=== PATIENT | male | born 1985 | race Hispanic/Latino ===

== ENCOUNTER 2016-11-06 09:58 | Emergency (ER) | payer OTHER ==
[~2016-11-06] VITALS: Ht 185.4 cm; Wt 108.9 kg
[~2016-11-06 09:58] MED LIST: NORCOTAB PO; ONDA4TAB6 PO; PERC5TAB6 PO; PERC7.5T3 PO; PERCOCET PO; PROT1TAB2 PO; TUMS500C PO; TYLE500T78 PO; ZANA4TAB PO
[2016-11-06] MEDS ORDERED: TYLE325C PO (10:06)
[2016-11-06] MEDS ORDERED: diclofenac 1% (10:06)
[2016-11-06] MEDS ORDERED: LIDOCAINE (10:06)
[2016-11-06] MEDS ORDERED: ULTRACET TAB PO PRN (11:15)
[2016-11-06] MEDS: traMADol 50 MG TAB PO ONE (11:23)
[2016-11-06] MEDS ORDERED: TRAM50TA2 PO (11:57)
--- NOTE | 2016-11-06 12:04 | REP ---
REASON: Shoulder pain. PRIORS: None. COMPARISON: No priors. FINDINGS: Three views of the shoulder were performed. The acromioclavicular and glenohumeral relationships are within normal limits. There is no acute fracture or destructive osseous lesions. Signed by Lev Culp DO 11/06/2016 02:09 P
[2016-11-06 12:13] VITALS: BP 150/92
== END 2016-11-06 12:25 | disposition home or self-care (01) ==
LOC: M ED 12:10
DX: M25.511 Pain in right shoulder (principal)

== ENCOUNTER 2016-12-01 21:20 | Emergency (ER) | payer OTHER ==
[~2016-12-01] VITALS: Ht 185.4 cm; Wt 113.4 kg
[~2016-12-01 21:20] MED LIST changes: +LIDOCAINE; +TRAM50TA2 PO; +TYLE325C PO; +diclofenac 1%
[2016-12-01 21:21] VITALS: BP 175/101
[2016-12-01] MEDS ORDERED: IMIT50TA PO (21:36)
== END 2016-12-02 00:45 | disposition left against medical advice (07) ==
LOC: M ED 22:32
DX: R07.81 Pleurodynia (principal); Z53.21 Procedure and treatment not carried out due to patient leaving prior to being seen by health care provider

== ENCOUNTER 2017-02-27 20:39 | Emergency (ER) | payer OTHER ==
[~2017-02-27] VITALS: Ht 185.4 cm; Wt 113.6 kg
[~2017-02-27 20:39] MED LIST changes: +IMIT50TA PO; +PERC5TAB12 PO; -PERC5TAB6 PO; +PERC7.5T11 PO; -PERC7.5T3 PO
[2017-02-27] MEDS ORDERED: TYLE325T5 PO (20:56)
[2017-02-27] MEDS ORDERED: ONDANSETRON 4MG/2ML VIAL (J2405) IV ONE (22:00)
[2017-02-27] MEDS ORDERED: NS 1,000 ML IV ONE (22:00)
[2017-02-27 22:12] LABS: BASO # 0.4 K/mm3 (0.0-0.2); BASO % 3.5 % (0.0-1.0); EOS # 0.2 K/mm3 (0.0-0.50); EOS % 1.8 % (0.0-3.0); LARGE UNSTAINED CELL # 0.2 K/mm3 (0.0-0.4); LARGE UNSTAINED CELL % 1.7 % (0.0-4.0); LYMPH # 3.1 K/mm3 (1.5-4.5); LYMPH % 30.5 % (24.0-44.0); MEAN CORPUSCULAR HEMOGLOBIN 31.9 pg (27.0-33.0); MEAN CORPUSCULAR HGB CONC 34.9 g/dl (32.0-36.5); MEAN CORPUSCULAR VOLUME 91.6 fl (80.0-96.0); MONO # 0.6 K/mm3 (0.0-0.8); MONO % 5.9 % (0.0-5.0); NEUTROPHILS # 5.8 K/mm3 (1.8-7.7); NEUTROPHILS % 56.7 % (36.0-66.0); PLATELET COUNT, AUTOMATED 349 k/mm3 (150-450); RED CELL DISTRIBUTION WIDTH 11.3 % (11.5-14.5); WHITE BLOOD COUNT 10.2 K/mm3 (4.0-10.0)
[2017-02-27 22:46] LABS: ALBUMIN/GLOBULIN RATIO 0.91 (1.00-1.93); ALKALINE PHOSPHATASE 82 U/L (45-117); ALT/SGPT 57 U/L (12-78); ANION GAP 9 MEQ/L (8-16); AST/SGOT 29 U/L (15-37); BILIRUBIN,DIRECT 0.1 MG/DL (0.0-0.2); BILIRUBIN,TOTAL 0.6 MG/DL (0.2-1.0); BLOOD UREA NITROGEN 12 MG/DL (7-18); CALCIUM LEVEL 8.7 MG/DL (8.5-10.1); CARBON DIOXIDE LEVEL 27 MEQ/L (21-32); CHLORIDE LEVEL 103 MEQ/L (98-107); GLOMERULAR FILTRATION RATE > 60.0 (>60); GLUCOSE, FASTING 87 MG/DL (70-105); POTASSIUM SERUM 3.4 MEQ/L (3.5-5.1); SODIUM LEVEL 139 MEQ/L (136-145); TOTAL PROTEIN 8.4 GM/DL (6.4-8.2)
[2017-02-28] MEDS ORDERED: MORPHINE 2 MG/ML 1ML SYRINGE IV ONE (00:30)
[2017-02-28] MEDS ORDERED: ISOVUE-370 76% 100ML VIAL (Q9967) As Ordered ONE (00:36)
--- NOTE | 2017-02-28 01:20 | REPUSA ---
CLINICAL HISTORY: Abdominal pain. TECHNIQUE: Multiple axial, sagittal and coronal CT images were obtained through the abdomen and pelvi s after administration of oral and intravenous contrast material. COMMENTS: Comparison to the prior exam on 07/05/2016. Fluid-filled colon is noted. Fluid-filled small bowels. The liver is moderately enlarged decreased attenuation without mass or defect. There is no intra or e xtrahepatic biliary ductal dilatation. The spleen is normal. The gallbladder is surgically absent. The pancreas is of normal contour and attenuation characteristi cs. There is no evidence of adrenal mass. Both kidneys demonstrate prompt and equal nephrograms. The kidneys are normal in size, shape and conf iguration. There is no evidence of renal or ureteral mass. No renal or ureteral calculi are identifie d. There is no hydroureter or hydronephrosis. No evidence for appendicitis. There is no bowel wall thickening. No evidence for small or large avila l obstruction. There is no evidence of abdominal ascites or lymphadenopathy. There is no evidence of intrinsic or extrinsic bladder mass. There is no pelvic ascites or lymphadeno theodore. Mildly thickened bladder. Images of the lung bases show no evidence of pleural or parenchymal mass. There are no pleural effusi ons. The bony structures are free of lytic or blastic lesions. IMPRESSION: Fluid-filled bowels. Probably enteritis. Mildly thickened bladder. Thank you for your kind referral of this patient.
[2017-02-28] MEDS ORDERED: ZOFR4TAB3 PO (01:39)
[2017-02-28 01:49] VITALS: BP 154/89
--- NOTE | 2017-02-28 01:50 | REPUSA ---
CLINICAL HISTORY: Abdominal pain. TECHNIQUE: Realtime sonographic images were obtained in multiple projections. COMMENTS: The liver is of normal size, parenchyma demonstrates normal echogenicity. No discrete hepatic mass is seen. There is no intra or extrahepatic biliary ductal dilatation. CBD measures 3 mm. The gallbladder is rodgers rgically absent. There is no abdominal ascites. The right kidney measures 12 cm , free of hydronephrosis. IMPRESSION: Post cholecystectomy. Otherwise negative. Thank you for your kind referral of this patient.
== END 2017-02-28 01:59 | disposition home or self-care (01) ==
LOC: M ED 20:39
DX: K52.9 Noninfective gastroenteritis and colitis, unspecified (principal); Z72.0 Tobacco use
CPT/HCPCS: 74177; 76705; 80048; 80076; 83690; 85025; 96374; 96375; 99283; J2405; Q9967

== ENCOUNTER 2017-05-02 14:02 | Emergency (ER) | payer OTHER ==
[~2017-05-02] VITALS: Ht 185.4 cm; Wt 111.4 kg
[2017-05-02 14:02] VITALS: BP 162/110
[~2017-05-02 14:02] MED LIST changes: +TYLE325T5 PO; +ZOFR4TAB3 PO
[2017-05-02] MEDS ORDERED: GI COCKTAIL 50ML BTL(HYOSCYAMINE/MAALOX/LIDOCAINE VISCOUS)(1:3:1) PO ONE (14:30)
[2017-05-02 14:42] LABS: BASO % 0.4 % (0.0-1.0); EOS # 0.2 10^3/uL (0.0-0.50); EOS % 1.5 % (0.0-3.0); IMMATURE GRANULOCYTE % 0.5 % (0-0); LYMPH # 2.9 10^3/uL (1.5-4.5); LYMPH % 29.8 % (24.0-44.0); MEAN CORPUSCULAR HEMOGLOBIN 31.8 pg (27.0-33.0); MEAN CORPUSCULAR VOLUME 90.7 fl (80.0-96.0); MONO # 0.7 10^3/uL (0.0-0.8); MONO % 6.8 % (0.0-5.0); NEUTROPHILS # 5.9 10^3/uL (1.8-7.7); PLATELET COUNT, AUTOMATED 323 10^3/uL (150-450); RED CELL DISTRIBUTION WIDTH 11.1 % (11.5-14.5); WHITE BLOOD COUNT 9.7 10^3/uL (4.0-10.0)
[2017-05-02 15:11] LABS: ALBUMIN/GLOBULIN RATIO 0.93 (1.00-1.93); ALKALINE PHOSPHATASE 66 U/L (45-117); ALT/SGPT 54 U/L (12-78); ANION GAP 7 MEQ/L (8-16); AST/SGOT 24 U/L (15-37); BILIRUBIN,DIRECT < 0.1 MG/DL (0.0-0.2); BILIRUBIN,TOTAL 0.5 MG/DL (0.2-1.0); BLOOD UREA NITROGEN 16 MG/DL (7-18); CALCIUM LEVEL 9.4 MG/DL (8.5-10.1); CARBON DIOXIDE LEVEL 28 MEQ/L (21-32); CHLORIDE LEVEL 101 MEQ/L (98-107); CREATININE FOR GFR 1.03 MG/DL (0.70-1.30); GLOMERULAR FILTRATION RATE > 60.0 (>60); GLUCOSE, FASTING 118 MG/DL (70-105); SODIUM LEVEL 136 MEQ/L (136-145); TOTAL PROTEIN 8.3 GM/DL (6.4-8.2)
[2017-05-02] MEDS ORDERED: PROT1TAB2 PO (15:56)
--- NOTE | 2017-05-02 16:52 | REP ---
Abdominal series: Four views. History: Abdominal pain. Findings: Upright chest radiograph is compared with the December 02, 2016 prior study. The lungs are well inflated and clear. Heart is not enlarged. Pulmonary vasculature is not increased. Supine and erect views of the abdomen show clips in right upper quadrant and in the right lower quadrant. The bowel gas pattern is normal. Psoas margins and flank stripes are intact. No mass, organomegaly, or pathologic calcification is seen. Impression: Negative abdominal series. Signed by Conrado Wallace MD 05/02/2017 04:43 P
== END 2017-05-02 16:03 | disposition home or self-care (01) ==
LOC: M ED 14:02
DX: K29.71 Gastritis, unspecified, with bleeding (principal); Z79.899 Other long term (current) drug therapy; Z88.8 Allergy status to other drugs, medicaments and biological substances; Z91.018 Allergy to other foods